=== PATIENT | male | born 1960 | race Caucasian/White ===

== ENCOUNTER 2024-10-12 08:47 | Outpatient (OUT) | payer OTHER, SELFPAY ==
--- NOTE | 2024-10-12 09:00 | CA_ITS ---
Patient Name: ARCHIE WATERMAN MR#: [id number] : 1960 Exam Date: 10/12/2024 Ordering Doctor: ABIOLA PRIEST ECHOCARDIOGRAM REPORT PROCEDURE: CA ECHO DOPPLER COMPLETE INDICATIONS: Heart murmur, hypertension COMPARISON: None. DESCRIPTION: COMPLETE ECHOCARDIOGRAM Real-time transthoracic echocardiography with 2D, M-mode, spectral and color flow Doppler performed. QUALITY: Technical quality was good. LEFT VENTRICLE: Normal chamber size. Thickened septal wall. LV EF: Global left ventricular systolic function is normal; visually estimated ejection fraction 60-65%. No significant wall motion abnormalities. Calculated left ventricular ejection fraction is 60%. DIASTOLIC: Normal diastolic function. ATRIAL SEPTUM: Inadequately seen. LEFT ATRIUM: Normal chamber size. RIGHT ATRIUM: Normal chamber size. RIGHT VENTRICLE: Normal chamber size. Normal right ventricular systolic function. TRICUSPID VALVE: Normal mobility and thickness. No stenosis with no regurgitation. Unable to assess right-sided pressures due to lack of measurable tricuspid regurgitation. MITRAL VALVE: Normal mobility and thickness. No evidence of mitral valve stenosis. There is no mitral annular calcification. No mitral regurgitation. AORTIC VALVE: Normal trileaflet appearance. Mildly calcified aortic valve with diminished mobility. Doppler velocity suggests mild aortic valve stenosis. DVI 0.3, MANFRED 1.9 cm2. Mild aortic regurgitation. AORTIC ROOT: Normal diameter and appearance. PULMONIC VALVE: Not well visualized. No stenosis. No regurgitation. PERICARDIUM: No evidence of pericardial effusion. IVC: Collapses with inspiration. IVC is normal in size. CONCLUSION: Global left ventricular systolic function is normal; visually estimated ejection fraction 60 to 65% Normal right ventricular size and systolic function Normal diastolic function Mild aortic valve stenosis Mild aortic valve regurgitation Adult Echocardiography Procedure Report Left Ventricle LVEDD (3.7 - 5.6 cm): 5.08 cm LVESD (2.2 - 4.0 cm): 3.93 cm LVIVS thickness (0.6 - 1.2 cm): 1.15 cm LVPW thickness (0.5 - 1.0 cm): 1.04 cm e': 0.11 m/s E - e': 7.29 LVOT Max Gradient: 3.20 mm[Hg] LVOT Area (cm2): 0.89 m/s Peak Velocity (LVOT): 0.89 m/s Mean Velocity (LVOT): 0.62 m/s LVOT Diameter 2.68 cm Left Atrium LA Volume Index (2D A2C): 35.79 ml/m2 Left Atrium Systolic Dimension: 3.91 cm Mitral Valve MV E to A Ratio: 0.89 Mitral Valve A-Wave Peak Velocity: 0.93 m/s Mitral Valve E-Wave Peak Velocity: 0.82 m/s Right Ventricle Aorta AO Root Diam: 4.11 cm Aortic Valve AoV Area (Peak Frank): 1.88 cm2, 1.88 cm2 AoV Area (VTI): 2.07 cm2, 2.07 cm2 Deceleration Castro: 1.36 m/s2 Pressure Half-Time: 1.13 s Peak Velocity(Antegrade Flow): 2.69 m/s, 2.36 m/s Peak Gradient(Antegrade Flow): 28.92 mm[Hg], 22.31 mm[Hg] Mean Velocity(Antegrade Flow): 1.77 m/s, 1.71 m/s Mean Gradient(Antegrade Flow): 14.74 mm[Hg], 13.14 mm[Hg] Velocity Time Integral: 55.84 cm, 54.15 cm Tricuspid Valve Pulmonic Valve Peak Velocity: 0.80 m/s Peak Gradient: 2.54 mm[Hg] Right Atrium Right Atrium Systolic Pressure: 45.92 ml, 45.92 ml Dictated by: Glen Martinez M.D. on 10/12/2024 at 14:47 Approved by: Glen Martinez M.D. on 10/12/2024 at 14:52
== END 2024-10-12 08:48 | disposition home or self-care (01) ==
LOC: CARD 08:49
PROVIDERS: Family Provider Internal Medicine; PCP Family Medicine; Visit Provider Nurse Practitioner
DX: R01.1 Cardiac murmur, unspecified (principal)
CPT/HCPCS: 93306